=== PATIENT | female | born 1985 | race African-American/Black ===

== ENCOUNTER 2017-04-09 22:57 | Emergency (ER) | payer OTHER ==
[~2017-04-09] VITALS: Ht 165.1 cm; Wt 77.6 kg
[~2017-04-09 22:57] MED LIST: FLEXERIL PO; IBUPROFEN 800800 MG PO; NORCO 5-325 TA1 EACH PO; NORFLEX100 MG PO
[2017-04-09 23:18] LABS: URINE BILIRUBIN NEGATIVE (Negative); URINE BLOOD 1+ (Negative); URINE COLOR YELLOW; URINE GLUCOSE-RANDOM* NEGATIVE (Negative); URINE KETONES 1+ (Negative); URINE NITRITE NEGATIVE (Negative); URINE PROTEIN (DIPSTICK) TRACE (Negative); URINE UROBILINOGEN 0.2 E.U./dl (0.2-1.0)
[2017-04-09] MEDS ORDERED: MICROGESTIN FE1 EAC1 PO (23:20)
[2017-04-09 23:29] LABS: HEMATOCRIT 37.1 % (37.0-47.0); HEMOGLOBIN 12.4 gm/dL (12.0-15.0); MCH 31.2 pg (26.0-34.0); MCHC 33.5 g/dL (28.0-37.0); MCV 93.3 fL (80.0-100.0); PLATELET COUNT 213 thou/uL (150-400); RBC 3.98 mil/uL (4.20-5.00); RDW 12.6 % (10.5-14.5); WBC 17.5 thou/uL (4.0-11.0)
[2017-04-09 23:30] LABS: MANUAL DIFF YES
[2017-04-09 23:35] LABS: CALCIUM 8.7 mg/dL (8.5-10.1); CREATININE 0.9 mg/dL (0.6-1.0); POTASSIUM 3.5 mmol/L (3.5-5.1)
[2017-04-09 23:36] LABS: CASTS None Seen /LPF (None Seen); SQUAMOUS 0-3 Few /LPF (0-3)
[2017-04-09 23:38] LABS: BACTERIA 1-9 Few /HPF (None Seen); CRYSTALS None Seen /LPF (None Seen); URINE RBC 0-2 Rare /HPF (0-2); URINE WBC 6-15 Few /HPF (0-5)
[2017-04-09 23:40] LABS: ALBUMIN 3.4 g/dL (3.4-5.0); DIRECT BILIRUBIN 0.1 mg/dL (<0.1-0.3); TOTAL BILIRUBIN 0.6 mg/dL (<0.1-1.0); TOTAL PROTEIN 7.8 g/dL (6.4-8.2)
[2017-04-09 23:58] LABS: ABSOLUTE NEUTROPHILS 15.1 thou/uL (1.4-8.2); TOTAL CELL COUNT 100
[2017-04-10] MEDS ORDERED: ZOFRAN ODT4 MG PO (00:22)
[2017-04-10] MEDS ORDERED: MACROBID 100 M100 M1 PO (00:22)
[2017-04-10] MEDS ORDERED: FLAGYL500 MG PO (00:24)
[2017-04-10 00:58] VITALS: BP 114/70
== END 2017-04-10 00:59 | disposition home or self-care (01) ==
LOC: ER 22:57
PROVIDERS: Emergency Medicine
DX: N12 Tubulo-interstitial nephritis, not specified as acute or chronic (principal); N76.0 Acute vaginitis; B96.89 Other specified bacterial agents as the cause of diseases classified elsewhere; D72.829 Elevated white blood cell count, unspecified; A41.9 Sepsis, unspecified organism